=== PATIENT | male | born 1980 | race Caucasian/White ===

== ENCOUNTER 2017-10-05 07:57 | Observation (INO) | payer BC ==
--- NOTE | 2017-10-05 08:18 | DR.N/VMALE ---
HPI - Time Seen Time seen: 08:15 - Primary Care Physician Primary Care Physician: MENDEZ - Complaints Chief Complaint Doctors Comments: Patient presented to the ED with complaint of vomiting blood this AM, small amount. Admits to epigastric pain for two to three months treatment of OTC medication. He denies cigarettes, dips, very little alcohol. Negative getting flu shots. Chief Complaint:: PT. STATES HE HAD BEEN HAVING HEARTBURN X 1 MONTH AND BEEN TAKING OTC MEDICATIONS WITH NO RELIEF. PT. SAYS HE VOMITED BLOOD X 3 THIS MORNING AND IS HAVING EPIGASTRIC PAIN (BURNING SENSATION) WELL AT FATIGUE. - Source History Provided: Patient - Mode of Arrival Mode of Arrival: Ambulatory - Timing Onset of Chief Complaint: 10/05/17 PMH - PMH Past Medical History: Yes Past Medical History: Hypertension Past Surgical History: Yes Surgical History: Appendectomy - Family History History of Family Medical Conditions: No - Social History Does patient currently use any type of tobacco product: No Have you used tobacco products in the last 12 months: No Type of Tobacco Use: DIPS Does any household member use tobacco: No Alcohol Use: None Do you use any recreational Drugs:: No Lives With: Spouse Lives Where: Home - infectious screening In the last 2 months have you had wt loss of >10#?: NO Have you had fever, night sweats or hemotysis?: No Have you traveled outside the country in the last 6 months?: No Isolation: Standard ROS - Review of Systems Eyes: No Symptoms Reported ENTM: No Symptoms Reported Respiratoy: No Symptoms Reported Cardiovascular: No Symptoms Reported Gastrointestinal/Abdominal: No Symptoms Reported Genitourinary: No Symptoms Reported Neurological: No Symptoms Reported Musculoskeletal: No Symptoms Reported Integumentary: No Symptoms Reported Hematologic/Lymphatic: No Symptoms Reported Endocrine: No Symptoms Reported Psychiatric: No Symptoms Reported All Other Systems: Reviewed and Negative PE - Vital Signs Vitals: Temperature 99.1 F Pulse Rate 111 Respiratory Rate 20 Blood Pressure 145/105 O2 Sat by Pulse Oximetry 98 - General General Appearance: Alert, In No Apparent Distress - Head Head Exam: Normal Inspection, Atraumatic - Eyes Eye exam: Normal Appearance, PERRL, EOMI - ENT ENT Exam: Normal Exam - Neck Neck Exam: Normal Inspection, Full ROM - Chest Chest Inspection: Normal Inspection, Tenderness (xiphoid ) - Respiratory Respiratory Exam: Normal Lung Sounds Bilat Respiratory Exam: Bilateral Clear to Auscultation - Cardiovascular Cardiovascular Exam: Regular Rate, Normal Rhythm - Abdominal Exam Abdominal Exam: Normal Inspection, Normal Bowel Sounds Abdominal Tenderness: Epigastrium - Rectal Rectal Exam: Deferred (patient refused) - Exam: Male: Deferred - Extremities Extremities Exam: Normal Inspection, Full ROM - Back Back Exam: Normal Inspection - Neurologic Neurological Exam: Alert, Oriented X3, CN II-XII Intact - Psychiatric Psychiatric Exam: Normal Affect - Skin Skin Exam: Warm, Dry Course - Reevaluation 1st: Unchanged ROR - Labs Reviewed Result Diagrams: 10/05/17 08:40 10/05/17 08:40 Laboratory: WBC 13.2 X10^3/uL (3.6-10.0) H 10/05/17 08:40 RBC 6.11 X10^6/uL (4.7-6.0) H 10/05/17 08:40 Hgb 18.6 g/dL (13.5-18.0) H 10/05/17 08:40 Hct 53.6 % (42.0-54.0) 10/05/17 08:40 MCV 87.6 fL (80.0-100.0) 10/05/17 08:40 MCH 30.5 pg (27.0-34.0) 10/05/17 08:40 MCHC 34.8 g/dL (33.0-35.0) 10/05/17 08:40 RDW 13.2 % (11.6-16.5) 10/05/17 08:40 Plt Count 219 X10^3/uL (150.0-450.0) 10/05/17 08:40 MPV 9.0 fL (7.4-11.0) 10/05/17 08:40 Neut % 87.9 % (42.0-75.0) H 10/05/17 08:40 Lymph % 5.5 % (21.0-51.0) L 10/05/17 08:40 [place] % 5.3 % (0.0-13.0) 10/05/17 08:40 Eos % 1.1 % (0.9-2.9) 10/05/17 08:40 Baso % 0.2 % (0.2-1.0) 10/05/17 08:40 Neut # 11.6 x10^3/uL (2.2-4.8) H 10/05/17 08:40 Lymph # 0.7 X10^3/uL (1.3-2.9) L 10/05/17 08:40 [place] # 0.7 x10^3/uL (0.3-0.8) 10/05/17 08:40 Eos # 0.1 x10^3/uL (0.0-0.2) 10/05/17 08:40 Baso # 0.0 X10^3/uL (0.0-0.1) 10/05/17 08:40 Absolute Nucleated RBC 0.1 /100WBC 10/05/17 08:40 Sodium 140 mmol/L (136-145) 10/05/17 08:40 Corrected Sodium 140 mmol/L (136-145) 10/05/17 08:40 Potassium 5.1 mmol/L (3.5-5.1) 10/05/17 08:40 Chloride 104 mmol/L (98-107) 10/05/17 08:40 Carbon Dioxide 30.2 mmol/L (21-32) 10/05/17 08:40 BUN 13 mg/dL (7-18) 10/05/17 08:40 Creatinine 1.11 mg/dL (0.70-1.30) 10/05/17 08:40 Est GFR (MDRD) Af Amer > 60 (>60) 10/05/17 08:40 Est GFR (MDRD) Non-Af > 60 (>60) 10/05/17 08:40 Glucose 111 mg/dL (65-99) H 10/05/17 08:40 Calcium 8.7 mg/dL (8.5-10.1) 10/05/17 08:40 Corrected Calcium TNP 10/05/17 08:40 Total Bilirubin 1.10 mg/dL (0.2-1.0) H 10/05/17 08:40 AST 22 Units/L (15-37) 10/05/17 08:40 ALT 39 Units/L (12-78) 10/05/17 08:40 Alkaline Phosphatase 60 Units/L (46-116) 10/05/17 08:40 C-Reactive Protein 5.10 mg/L (0-3.0) H 10/05/17 08:40 Total Protein 7.6 g/dL (6.4-8.2) 10/05/17 08:40 Albumin 3.9 g/dL (3.4-5.0) 10/05/17 08:40 Globulin 3.7 g/dL (2.5-4.5) 10/05/17 08:40 Albumin/Globulin Ratio 1.1 Ratio (1.1-2.1) 10/05/17 08:40 H. pylori IgG Antibody Negative (NEGATIVE) 10/05/17 08:40 - XRAY XRAY Interpreted by: Radiologist (CT Abd/Pel: negative) - Diagnosis Discharge Problem: Epigastric pain - Discharge Plan Condition: Stable - Follow ups/Referrals Follow ups/Referrals: Salomon Crockett [Primary Care Provider] - 3 days - Instructions
[2017-10-05] MEDS ORDERED: NS 1000 ML 1,000 ML IV ONE ×2 (08:25→12:24)
[2017-10-05] MEDS ORDERED: NS 1000 ML 1,000 ML ONE ×2 (08:31→12:22)
[2017-10-05 08:51] LABS: BASOPHILS % (AUTO) 0.2 % (0.2-1.0); EOSINOPHILS # (AUTO) 0.1 x10^3/uL (0.0-0.2); EOSINOPHILS % (AUTO) 1.1 % (0.9-2.9); HEMATOCRIT 53.6 % (42.0-54.0); HEMOGLOBIN 18.6 g/dL (13.5-18.0); LYMPHOCYTES # (AUTO) 0.7 X10^3/uL (1.3-2.9); LYMPHOCYTES % (AUTO) 5.5 % (21.0-51.0); MEAN CORPUSCULAR HEMOGLOBIN 30.5 pg (27.0-34.0); MEAN CORPUSCULAR HGB CONC 34.8 g/dL (33.0-35.0); MEAN CORPUSCULAR VOLUME 87.6 fL (80.0-100.0); MONOCYTES # (AUTO) 0.7 x10^3/uL (0.3-0.8); MONOCYTES % (AUTO) 5.3 % (0.0-13.0); NEUTROPHILS # (AUTO) 11.6 x10^3/uL (2.2-4.8); NEUTROPHILS % (AUTO) 87.9 % (42.0-75.0); PLATELET COUNT 219 X10^3/uL (150.0-450.0); RED BLOOD COUNT 6.11 X10^6/uL (4.7-6.0); RED CELL DISTRIBUTION WIDTH 13.2 % (11.6-16.5); WHITE BLOOD COUNT 13.2 X10^3/uL (3.6-10.0)
[2017-10-05 08:59] LABS: ALANINE AMINOTRANSFERASE 39 Units/L (12-78); ALBUMIN 3.9 g/dL (3.4-5.0); ALKALINE PHOSPHATASE 60 Units/L (46-116); ASPARTATE AMINO TRANSFERASE 22 Units/L (15-37); BLOOD UREA NITROGEN 13 mg/dL (7-18); CALCIUM 8.7 mg/dL (8.5-10.1); CARBON DIOXIDE 30.2 mmol/L (21-32); CHLORIDE 104 mmol/L (98-107); COR NA(FOR HYPERGLY) 140 mmol/L (136-145); CREATININE 1.11 mg/dL (0.70-1.30); SODIUM 140 mmol/L (136-145); TOTAL PROTEIN 7.6 g/dL (6.4-8.2); eGFR BLACK RACES > 60 (>60); eGFR NON BLACK RACES > 60 (>60)
[2017-10-05] MEDS ORDERED: ZOFRAN INJ 4 MG VIAL ONE (10:04)
[2017-10-05] MEDS ORDERED: ZOFRAN INJ 4 MG VIAL IVP ONE ×2 (10:04→11:57)
[2017-10-05] MEDS ORDERED: NS 100 ML IV 100 ML IV ONE (10:11)
--- NOTE | 2017-10-05 10:43 | CT ---
HISTORY: Epigastric pain, abdominal pain Study: CT abdomen and pelvis with contrast Comparison: None Technique: Multiple axial images of the abdomen and pelvis were obtained with IV contrast. Oral contrast was no t remote administered. Dose reduction techniques including Automated Exposure Control (AEC) and adjus tment of mA and kV were utilized. Findings: The visualized portions of the lung bases are clear. The liver, spleen, pancreas, kidneys, and adren al glands are unremarkable. The gallbladder is normal. No renal calculi or obstructive uropathy. No free intraperitoneal air. No evidence of intestinal obstruction or inflammation. The appendix is n ot visualized. No free fluid. There is a small fat containing umbilical hernia. Osseous structures are unremarkable. The vascular s tructures are within normal limits for age. No pathologically enlarged lymph nodes are identified. No rmal urinary bladder. IMPRESSION: 1.Negative CT of the abdomen and pelvis. Reported By:
[2017-10-05] MEDS ORDERED: PHENERGAN INJ 25 MG IV ONE (11:18)
[2017-10-05] MEDS ORDERED: PHENERGAN INJ 25 MG ONE (11:30)
[2017-10-05 11:55] LABS: BILIRUBIN,URINE NEGATIVE (NEGATIVE); BLOOD/HEMOGLOBIN,URINE NEGATIVE (NEGATIVE); GLUCOSE, URINE NEGATIVE (NEGATIVE); KETONES,URINE NEGATIVE (NEGATIVE); LEUKOCYTE ESTERASE ,URINE NEGATIVE (NEGATIVE); NITRITES,URINE NEGATIVE (NEGATIVE); PROTEIN,URINE NEGATIVE (NEGATIVE); UROBILINOGEN,URINE NORMAL (NORMAL)
[2017-10-05 11:59] LABS: APPEARANCE,URINE CLEAR (CLEAR); COLOR,URINE YELLOW (YELLOW)
[2017-10-05] MEDS ORDERED: NS 1000 ML 1,000 ML with POTASSIUM CHLORIDE INJ 20 MEQ VIAL 20 MEQ IV SCH ×2 (12:00)
[2017-10-05] MEDS ORDERED: MORPHINE SULFATE INJ 4 MG IVP PRN (12:01)
[2017-10-05 12:03] LABS: RBC,URINE 0-1 /HPF (NEGATIVE)
[2017-10-05 12:04] LABS: BACTERIA,URINE NEGATIVE /HPF (NEGATIVE); SQUAMOUS EPITHELIAL CELL,UR NEGATIVE /HPF (NEGATIVE)
[2017-10-05] MEDS ORDERED: PHENERGAN INJ 25 MG IV PRN (12:24)
[2017-10-05 15:59] VITALS: BMI 41.9
[2017-10-05 17:00] LABS: BILIRUBIN,DIRECT 0.25 mg/dL (0-0.2)
[2017-10-05] MEDS ORDERED: TYLENOL 500 MG TAB EXTRA STRENGTH PO ONE ×2 (18:20→18:41)
[2017-10-05] MEDS: NS + KCL 20 MEQ/L 1,000 ML IV SCH ×2 (18:47→22:54)
[2017-10-05] MEDS: PROTONIX INJ 40 MG VIAL IVP SCH (21:14)
[2017-10-06] MEDS: NS + KCL 20 MEQ/L 1,000 ML IV SCH ×4 (04:00→17:34)
[2017-10-06 05:52] LABS: ALANINE AMINOTRANSFERASE 26 Units/L (12-78); ALBUMIN 3.1 g/dL (3.4-5.0); ALKALINE PHOSPHATASE 31 Units/L (46-116); ASPARTATE AMINO TRANSFERASE 17 Units/L (15-37); BLOOD UREA NITROGEN 12 mg/dL (7-18); CALCIUM 7.8 mg/dL (8.5-10.1); CARBON DIOXIDE 25.8 mmol/L (21-32); CHLORIDE 103 mmol/L (98-107); COR CA(FOR HYPOALB) 8.5 mg/dL (8.5-10.1); CREATININE 1.07 mg/dL (0.70-1.30); SODIUM 137 mmol/L (136-145); TOTAL PROTEIN 6.5 g/dL (6.4-8.2); eGFR BLACK RACES > 60 (>60); eGFR NON BLACK RACES > 60 (>60)
[2017-10-06 06:12] LABS: BASOPHILS % (AUTO) 0.3 % (0.2-1.0); HEMATOCRIT 46.7 % (42.0-54.0); HEMOGLOBIN 16.3 g/dL (13.5-18.0); LYMPHOCYTES # (AUTO) 0.6 X10^3/uL (1.3-2.9); LYMPHOCYTES % (AUTO) 9.3 % (21.0-51.0); MEAN CORPUSCULAR HEMOGLOBIN 30.4 pg (27.0-34.0); MEAN PLATELET VOLUME 9.2 fL (7.4-11.0); MONOCYTES # (AUTO) 0.4 x10^3/uL (0.3-0.8); MONOCYTES % (AUTO) 6.4 % (0.0-13.0); NEUTROPHILS # (AUTO) 5.7 x10^3/uL (2.2-4.8); PLATELET COUNT 173 X10^3/uL (150.0-450.0); RED BLOOD COUNT 5.36 X10^6/uL (4.7-6.0); WHITE BLOOD COUNT 6.8 X10^3/uL (3.6-10.0)
[2017-10-06] MEDS ORDERED: NORVASC TAB 5 MG PO SCH (09:00)
[2017-10-06] MEDS: PROTONIX INJ 40 MG VIAL IVP SCH ×2 (09:10→21:17)
--- NOTE | 2017-10-06 11:09 | DR.CONSULT ---
Consult - Consultation for Day of: Date: 10/05/16 - Chief Complaint Chief Complaint: Patient referred for epigastric pain and intractable nausea and vomiting. Patient with complaints of Epigastric pain, nausea and vomiting. - Allergies Allergies/Adverse Reactions: Allergies Allergy/AdvReac Type Severity Reaction Status Date / Time No Known Drug Allergies Allergy Verified 10/05/17 08:01 - History of Present Illness History of Present Illness: Patient is a 37yo male who was referred for epigastric pain and intractable nausea and vomiting. Patient with complaints of Epigastric pain that has been going on for 1 month, nausea and vomiting which started today and has vomting around a dozen times today with blood noted. He denies dysphagia, dyspepsia, constipation, diarrhea, melena and hematochezia. Patient noted to have elevated bilirubin and abdomen pelvis CT performed was negative. Patinet noted to have LUQ and epigastric tenderness. - Past Medical History Past Medical History: Hypertension - Past Surgical History Surgical History: Appendectomy - Social History Does patient currently use any type of tobacco product: Yes Have you used tobacco products in the last 12 months: Yes Type of Tobacco Use: Smokeless How many years tobacco product used: 10 Does any household member use tobacco: No Alcohol Use: Rarely Drug Use: None - Medications Home Medications: Amlodipine Besylate [NORVASC 5 MG *] 1 tab PO DAILY 10/05/17 [History Confirmed 10/05/17] - Review of Systems Constitutional: No Symptoms Reported Eyes: No Symptoms Reported ENT: No Symptoms Reported Respiratory: No Symptoms Reported Cardiovascular: No Symptoms Reported Gastrointestinal: See HPI, Nausea, Vomiting, Abdominal Pain (epigastric). denies: Diarrhea, Constipation, Melena, Hematochezia Genitourinary: No Symptoms Reported Musculoskeletal: No Symptoms Reported Skin: No Symptoms Reported Neurological: No Symptoms Reported - Physical Exam Vital Signs: Temperature 98.8 F Pulse Rate [Left Radial] 105 Pulse Rate 111 Respiratory Rate 18 Blood Pressure [Left Arm] 142/88 Blood Pressure 145/105 O2 Sat by Pulse Oximetry 91 Oriented: Normal Eyes: Normal Ear: Normal Nose: Normal Throat: Normal Respiratory: Clear Throughout Cardiovascular: Normal Auscultation: Bowel Sounds: Normal Palpation: Normal, Other (no distention). negative: Spleen Enlarged, Liver Enlarged, Mass Pulsatile Tenderness: LUQ, Epigastric Skin: Normal Musculoskeletal: Normal Psychiatric: Normal Mood Description: Calm Affect: Normal Speech Pattern: Clear - Plan Plan: Assessment. 1. Epigastric pain, nausea, vomiting, hematemesis r/o gastric ulcer, gastric adenocarcinoma. 2. Elevated LFTS. Plan. 1. Monitor Hgb , start protonix IV, EGD on . 2. Abdnormal LFT panel, Hepatitis profile
[2017-10-06] MEDS: TORADOL 15 MG VIAL IVP PRN ×2 (14:55→21:15)
[2017-10-06] MEDS ORDERED: LASIX IVP ONE (16:08)
--- NOTE | 2017-10-06 16:57 | RAD ---
HISTORY: Shortness of breath Study: Single view chest Comparison: None Findings: No infiltrate, effusion or pneumothorax identified. The cardiac and mediastinal contours are within normal limits. The soft tissues are unremarkable. IMPRESSION: 1. No acute cardiopulmonary abnormality. Reported By:
[2017-10-06] MEDS: NORVASC TAB 10 MG PO SCH (17:33)
[2017-10-07] MEDS: NS + KCL 20 MEQ/L 1,000 ML IV SCH ×5 (02:48→23:00)
[2017-10-07 05:43] LABS: BASOPHILS % (AUTO) 0.2 % (0.2-1.0); EOSINOPHILS % (AUTO) 0.4 % (0.9-2.9); HEMATOCRIT 46.5 % (42.0-54.0); HEMOGLOBIN 16.2 g/dL (13.5-18.0); LYMPHOCYTES # (AUTO) 1.3 X10^3/uL (1.3-2.9); LYMPHOCYTES % (AUTO) 13.5 % (21.0-51.0); MEAN CORPUSCULAR HEMOGLOBIN 30.3 pg (27.0-34.0); MEAN CORPUSCULAR HGB CONC 34.9 g/dL (33.0-35.0); MEAN CORPUSCULAR VOLUME 86.9 fL (80.0-100.0); MEAN PLATELET VOLUME 9.2 fL (7.4-11.0); MONOCYTES # (AUTO) 0.9 x10^3/uL (0.3-0.8); MONOCYTES % (AUTO) 9.3 % (0.0-13.0); NEUTROPHILS # (AUTO) 7.4 x10^3/uL (2.2-4.8); NEUTROPHILS % (AUTO) 76.6 % (42.0-75.0); PLATELET COUNT 173 X10^3/uL (150.0-450.0); RED BLOOD COUNT 5.35 X10^6/uL (4.7-6.0); RED CELL DISTRIBUTION WIDTH 12.6 % (11.6-16.5); WHITE BLOOD COUNT 9.7 X10^3/uL (3.6-10.0)
[2017-10-07 05:56] LABS: ALANINE AMINOTRANSFERASE 26 Units/L (12-78); ALKALINE PHOSPHATASE 36 Units/L (46-116); ASPARTATE AMINO TRANSFERASE 18 Units/L (15-37); BLOOD UREA NITROGEN 10 mg/dL (7-18); CARBON DIOXIDE 24.8 mmol/L (21-32); CHLORIDE 104 mmol/L (98-107); COR CA(FOR HYPOALB) 8.8 mg/dL (8.5-10.1); CREATININE 1.21 mg/dL (0.70-1.30); SODIUM 138 mmol/L (136-145); TOTAL PROTEIN 6.6 g/dL (6.4-8.2); eGFR BLACK RACES > 60 (>60); eGFR NON BLACK RACES > 60 (>60)
[2017-10-07] MEDS: NORVASC TAB 10 MG PO SCH (08:40)
[2017-10-07] MEDS: PROTONIX INJ 40 MG VIAL IVP SCH ×2 (08:40→21:47)
--- NOTE | 2017-10-07 12:13 | DR.H&P ---
H&P - History & Physical for Day of: H&P Date: 10/05/17 - Chief Complaint Chief Complaint: abdominal pain - Allergies Allergies/Adverse Reactions: Allergies Allergy/AdvReac Type Severity Reaction Status Date / Time No Known Drug Allergies Allergy Verified 10/05/17 08:01 - History of Present Illness History of Present Illness: IS A 37 YEAR OLD PATIENT OF OURS WHO PRESENTED TO THE EMERGENCY ROOM WITH COMPLAINTS OF EPIGASTRIC PAIN, HEARTBURN , AND VOMITING BLOOD. PATIENT REPORTS VOMITING BLOOD THREE TIMES THIS MORNING PRIOR TO ARRIVAL TO THE EMERGENCY ROOM. HE REPORTS EPIGASTRIC PAIN FOR TWO MONTHS THAT HAS PROGRESSIVLY GOTTEN WORSE DESPITE TAKING OVER THE COUNTER ANTACIDS. PATIENT REPORTS THAT HE IS UNABLE TO TOLERATE TAKING ANYTHING BY MOUTH WITHOUT VOMITING. ON EXAMINATION, HEART RATE IS RAPID. BILATERAL LUNGS ARE NOTED WITH SCATTERED WHEEZING. HE DENIES COUGH. ABDOMEN IS ROUND, SOFT, AND NOTED WITH MODERATE EPIGASTRIC PAIN. BOWEL SOUNDS ARE HYPERACTIVE. THERE IS NORMAL RANGE OF MOTION TO ALL EXTREMITIES. ON ARRIVAL TO THE EMERGENCY ROOM, VITALS WERE 99.1-111-20-98%-145/97. LABS AND CT WERE OBTAINED. ABNORMAL LAB VALUES INCLUDE THE FOLLOWING: WBC 13.2, RBC 6.11, HGB 18.6, GLUCOSE 111, TOTAL BILI 1.10, CRP 5.10. URINALYSIS UNREMARKABLE. BLOOD CLTURES ARE PENDING. AN ABD/ PELVIS CT WITH CONTRAST WAS OBTAINED AND REPORTED NEGATIVE FOR ACUTE ABNORMALITY. PATIENT WAS ADMITTED FOR FURTHER TREATMENT AND EVALUATION. HE WAS STARTED ON NORMAL SALINE WITH 20MEQ KCL AT 125, PROTONIX 40MG IV BID, PHENERGAN 25MG IV Q4H PRN, AND MORPHINE 4MG IV Q6H PRN. WE PLAN TO CONSULT GASTROENTEROLOGY, FOLLOW UP WITH AM LABS, AND CONTINUE TO MONITOR PATIENT. - Past Medical History Past Medical History: Hypertension - Past Surgical History Surgical History: Appendectomy - Social History Does patient currently use any type of tobacco product: Yes Have you used tobacco products in the last 12 months: Yes Type of Tobacco Use: Smokeless How many years tobacco product used: 10 Does any household member use tobacco: No Alcohol Use: Rarely Drug Use: None - Medications Home Medications: Amlodipine Besylate [NORVASC 5 MG *] 1 tab PO DAILY 10/05/17 [History Confirmed 10/05/17] - Review of Systems Constitutional: See HPI, Other (fatigue) Eyes: No Symptoms Reported ENT: No Symptoms Reported Respiratory: No Symptoms Reported Cardiovascular: No Symptoms Reported Gastrointestinal: Nausea, Vomiting, Abdominal Pain, Hematochezia Genitourinary: No Symptoms Reported Musculoskeletal: No Symptoms Reported Skin: No Symptoms Reported Neurological: No Symptoms Reported - Physical Exam Vital Signs: Temperature 98.9 F Pulse Rate [Left Radial] 98 Pulse Rate 111 Respiratory Rate 20 Blood Pressure [Left Arm] 152/96 Blood Pressure 145/105 O2 Sat by Pulse Oximetry 95 Oriented: Normal Eyes: Normal Ear: Normal Nose: Normal Throat: Normal Respiratory: Wheezes Throughout Cardiovascular: Normal : Normal Auscultation: Bowel Sounds: Increased Palpation: Normal Tenderness: Epigastric, Moderate Skin: Normal Musculoskeletal: Normal Psychiatric: Normal Mood Description: Calm Affect: Normal Speech Pattern: Clear - Assessment/Plan (1) Intractable nausea and vomiting Qualifiers: Vomiting type: unspecified Qualified Code(s): R11.2 - Nausea with vomiting , unspecified Status: Acute Plan: phenergan 25mn iv q4h prn, continue to monitor (2) Epigastric pain Status: Acute Plan: morphine 4mg iv q6h prn, protonix 40mg iv bid, gi consult, continue to monitor
--- NOTE | 2017-10-07 12:21 | US ---
History: Epigastric abdominal pain Study: Ultrasound of the right upper quadrant of the abdomen Findings: The liver is normal in size without demonstration of a mass. The right kidney measures 12.06 x 7.76 x 5.56 cm without mass or hydronephrosis. The pancreas is obscured. The common hepatic duct measures 5.1 mm diameter. The gallbladder is of normal size. The wall is thic kened up to 4 mm. There are small echogenic foci within the gallbladder. Impression: Cholelithiasis and questionable cholecystitis Reported By:
[2017-10-07] MEDS ORDERED: DIPRIVAN VIAL 20 ML ONE ×2 (12:33→12:56)
[2017-10-07] MEDS ORDERED: NS 500 ML IV 500 ML IV ONE (12:34)
[2017-10-07] MEDS ORDERED: DIPRIVAN VIAL 10 ML ONE (12:45)
[2017-10-07] MEDS: TORADOL 15 MG VIAL IVP PRN (15:33)
[2017-10-07] MEDS ORDERED: CATAPRES TAB 0.1 MG PO ONE (22:02)
--- NOTE | 2017-10-07 22:19 | PCM.PROG ---
Progress Note - Progress Note for Day of Date: 10/06/17 - Subjective Subjective: WAS ADMITTED ON 10/05/2017 FOR EPIGASTRIC PAIN AND INTRACTABLE NAUSEA AND VOMITING. TODAY, HE IS ALERT AND ORIENTED, SITTING UP IN CHAIR ON MORNING ROUNDS. PATIENTS SPOUSE IS AT BEDSIDE. TODAY, HE CONTINUES WITH COMPLAINTS OF EPIGASTRIC PAIN AND NAUSEA. HE IS ALSO NOTED WITH COMPLAINTS OF WHEEZING, AND HEADACHE. PATIENT REPORTS THAT PAIN AND INDIGESTION IS WORSE AFTER EATING. HE DENIES VOMITING SINCE ADMISSION. ON EXAMINATION, HE IS SLIGHTLY TACHYCARDIC WITH HR NOTED TO BE 105. BILATERAL LUNGS ARE NOTED WITH SCATTERED WHEEZING. ABDOMEN IS ROUND, SOFT, AND NOTED WITH MILD EPIGASTRIC TENDERNESS. THERE IS GOOD RANGE OF MOTION NOTED TO ALL EXTREMITIES. HIS VITAL SIGNS THIS MORNING ARE 98.8-105-18-96%-142/88. LABS WERE OBTAINED. ABNORMAL LAB VALUES INCLUDE THE FOLLOWING: CALCIUM 7.8, TOTAL BILIRUBIN 1.70, ALK PHOS 31, ALBUMIN 3.1. CONSULTED WITH PATIENT YESTERDAY. HE PLANS FOR EGD TOMORROW TO RULE OUT GASTRIC ULCER AND ADENOCARCINOMA. ADDITIONAL LABS WERE ALSO ORDERED. WE WILL ORDER A CHEST XRAY TODAY AND A GALLBLADDER ULTRASOUND TO BE OBTAINED IN THE MORNING. WE WILL START TORADOL 15MG IV Q6H PRN FOR COMPLAINTS OF HEADACHE. OTHERWISE, WE WILL FOLLOW UP WITH AM LABS AND CONTINUE TO MONITOR PATIENT. - Past Medical Family Social History Past Med/Fam/Surg Hx: No changes since H&P Allergies: Allergies No Known Drug Allergies Allergy (Verified 10/05/17 08:01) - Review of Systems ROS: No change since H&P - Vital Signs and I&O's Vital Signs: Temperature 98.3 F Pulse Rate [Left Radial] 93 Pulse Rate 111 Respiratory Rate 20 Blood Pressure [Left Arm] 147/88 Blood Pressure 145/105 O2 Sat by Pulse Oximetry 97 Intake and Output: Intake & Output 10/05/17 10/06/17 10/07/17 10/08/17 11:59 11:59 11:59 11:59 Intake Total 1854 2059 147 Output Total 0 Balance 1854 2059 1474 - Physical Exam Oriented: Normal Eyes: Normal Ear: Normal Nose: Normal Throat: Normal Respiratory: Right, Left, Generalized, Wheezes Cardiovascular: Normal : Normal Auscultation: Bowel Sounds: Increased Palpation: Normal Tenderness: Epigastric, Mild Skin: Normal Musculoskeletal: Normal Psychiatric: Normal Mood Description: Calm Affect: Normal Speech Pattern: Clear - Laboratory and Diagnostics Result Diagrams: 10/07/17 04:50 10/07/17 04:50 Labs: 10/05/17 19:20 Blood Blood Culture - Preliminary 10/05/17 19:15 Blood Blood Culture - Preliminary Laboratory WBC 9.7 X10^3/uL (3.6-10.0) 10/07/17 04:50 RBC 5.35 X10^6/uL (4.7-6.0) 10/07/17 04:50 Hgb 16.2 g/dL (13.5-18.0) 10/07/17 04:50 Hct 46.5 % (42.0-54.0) 10/07/17 04:50 MCV 86.9 fL (80.0-100.0) 10/07/17 04:50 MCH 30.3 pg (27.0-34.0) 10/07/17 04:50 MCHC 34.9 g/dL (33.0-35.0) 10/07/17 04:50 RDW 12.6 % (11.6-16.5) 10/07/17 04:50 Plt Count 173 X10^3/uL (150.0-450.0) 10/07/17 04:50 MPV 9.2 fL (7.4-11.0) 10/07/17 04:50 Neut % 76.6 % (42.0-75.0) H 10/07/17 04:50 Lymph % 13.5 % (21.0-51.0) L 10/07/17 04:50 [place] % 9.3 % (0.0-13.0) 10/07/17 04:50 Eos % 0.4 % (0.9-2.9) L 10/07/17 04:50 Baso % 0.2 % (0.2-1.0) 10/07/17 04:50 Neut # 7.4 x10^3/uL (2.2-4.8) H 10/07/17 04:50 Lymph # 1.3 X10^3/uL (1.3-2.9) 10/07/17 04:50 [place] # 0.9 x10^3/uL (0.3-0.8) H 10/07/17 04:50 Eos # 0.0 x10^3/uL (0.0-0.2) 10/07/17 04:50 Baso # 0.0 X10^3/uL (0.0-0.1) 10/07/17 04:50 Absolute Nucleated RBC 0.1 /100WBC 10/07/17 04:50 Sodium 138 mmol/L (136-145) 10/07/17 04:50 Corrected Sodium TNP 10/07/17 04:50 Potassium 3.7 mmol/L (3.5-5.1) 10/07/17 04:50 Chloride 104 mmol/L (98-107) 10/07/17 04:50 Carbon Dioxide 24.8 mmol/L (21-32) 10/07/17 04:50 BUN 10 mg/dL (7-18) 10/07/17 04:50 Creatinine 1.21 mg/dL (0.70-1.30) 10/07/17 04:50 Est GFR (MDRD) Af Amer > 60 (>60) 10/07/17 04:50 Est GFR (MDRD) Non-Af > 60 (>60) 10/07/17 04:50 Glucose 99 mg/dL (65-99) 10/07/17 04:50 Calcium 8.0 mg/dL (8.5-10.1) L 10/07/17 04:50 Corrected Calcium 8.8 mg/dL (8.5-10.1) 10/07/17 04:50 Iron 26 ug/dL (50-175) L 10/05/17 16:12 TIBC 225 ug/dL (250-450) L 10/05/17 16:12 Transferrin 182 mg/dL (202-364) L 10/05/17 16:12 Ferritin 182 ng/mL (26-388) 10/05/17 16:12 Total Bilirubin 1.00 mg/dL (0.2-1.0) 10/07/17 04:50 Direct Bilirubin 0.25 mg/dL (0-0.2) H 10/05/17 16:12 Indirect Bilirubin 1.25 mg/dL (0.2-0.8) H 10/05/17 16:12 AST 18 Units/L (15-37) 10/07/17 04:50 ALT 26 Units/L (12-78) 10/07/17 04:50 Alkaline Phosphatase 36 Units/L (46-116) L 10/07/17 04:50 C-Reactive Protein 5.10 mg/L (0-3.0) H 10/05/17 08:40 Total Protein 6.6 g/dL (6.4-8.2) 10/07/17 04:50 Albumin 3.0 g/dL (3.4-5.0) L 10/07/17 04:50 Globulin 3.6 g/dL (2.5-4.5) 10/07/17 04:50 Albumin/Globulin Ratio 0.8 Ratio (1.1-2.1) L 10/07/17 04:50 Specimen Type Clean catch urine 10/05/17 11:36 Urine Color Yellow (YELLOW) 10/05/17 11:36 Urine Appearance Clear (CLEAR) 10/05/17 11:36 Urine pH 7.0 (5.0 - 8.0) 10/05/17 11:36 Ur Specific [place] 1.010 (1.000-1.030) 10/05/17 11:36 Urine Protein Negative (NEGATIVE) 10/05/17 11:36 Urine Glucose (UA) Negative (NEGATIVE) 10/05/17 11:36 Urine Ketones Negative (NEGATIVE) 10/05/17 11:36 Urine Occult Blood Negative (NEGATIVE) 10/05/17 11:36 Urine Nitrite Negative (NEGATIVE) 10/05/17 11:36 Urine Bilirubin Negative (NEGATIVE) 10/05/17 11:36 Urine Urobilinogen Normal (NORMAL) 10/05/17 11:36 Ur Leukocyte Esterase Negative (NEGATIVE) 10/05/17 11:36 Urine RBC 0-1 /HPF (NEGATIVE) 10/05/17 11:36 Urine WBC Neg /HPF (NEGATIVE) 10/05/17 11:36 Ur Squamous Epith Cells Negative /HPF (NEGATIVE) 10/05/17 11:36 Urine Bacteria Negative /HPF (NEGATIVE) 10/05/17 11:36 Ur Culture Indicated? No/not indicated 10/05/17 11:36 H. pylori IgG Antibody Negative (NEGATIVE) 10/05/17 08:40 Tissue Pathology To follow 10/07/17 12:44 - Plan (1) Intractable nausea and vomiting Status: Acute Qualifiers: Vomiting type: unspecified Qualified Code(s): R11.2 - Nausea with vomiting , unspecified Plan: phenergan 25mn iv q4h prn, continue to monitor (2) Epigastric pain Status: Acute Plan: morphine 4mg iv q6h prn, protonix 40mg iv bid, EGD on , gallbladder US on , continue to monitor (3) GERD (gastroesophageal reflux disease) Status: Acute Qualifiers: Esophagitis presence: with esophagitis Qualified Code(s): K21.0 - Gastro- esophageal reflux disease with esophagitis Plan: protonix 40mg iv bid, continue to monitor (4) Hypertension Status: Acute Qualifiers: Hypertension type: essential hypertension Qualified Code(s): I10 - Essential (primary) hypertension Plan: continue norvasc 10mg po daily, continue to monitor
[2017-10-07 23:26] LABS: HEPATITIS A ANTIBODY IGM Negative (Negative)
--- NOTE | 2017-10-08 01:01 | PCM.PROG ---
Progress Note - Progress Note for Day of Date: 10/07/17 - Subjective Subjective: WAS ADMITTED ON 10/05/2017 FOR EPIGASTRIC PAIN AND INTRACTABLE NAUSEA AND VOMITING. TODAY, HE IS ALERT AND ORIENTED, SITTING UP IN CHAIR ON MORNING ROUNDS. PATIENTS SPOUSE IS AT BEDSIDE. TODAY, HE CONTINUES WITH COMPLAINTS OF EPIGASTRIC PAIN AND NAUSEA. HE IS ALSO NOTED WITH COMPLAINTS OF WHEEZING, AND HEADACHE. PATIENT REPORTS THAT PAIN AND INDIGESTION IS WORSE AFTER EATING. HE DENIES VOMITING SINCE ADMISSION. ON EXAMINATION, HE IS SLIGHTLY TACHYCARDIC WITH HR NOTED TO BE 105. BILATERAL LUNGS ARE NOTED WITH SCATTERED WHEEZING. ABDOMEN IS ROUND, SOFT, AND NOTED WITH MILD EPIGASTRIC TENDERNESS. THERE IS GOOD RANGE OF MOTION NOTED TO ALL EXTREMITIES. HIS VITAL SIGNS THIS MORNING ARE 98.8-105-18-96%-142/88. LABS WERE OBTAINED. ABNORMAL LAB VALUES INCLUDE THE FOLLOWING: CALCIUM 7.8, TOTAL BILIRUBIN 1.70, ALK PHOS 31, ALBUMIN 3.1. CONSULTED WITH PATIENT YESTERDAY. HE PLANS FOR EGD TOMORROW TO RULE OUT GASTRIC ULCER AND ADENOCARCINOMA. ADDITIONAL LABS WERE ALSO ORDERED. WE WILL ORDER A CHEST XRAY TODAY AND A GALLBLADDER ULTRASOUND TO BE OBTAINED IN THE MORNING. WE WILL START TORADOL 15MG IV Q6H PRN FOR COMPLAINTS OF HEADACHE. OTHERWISE, WE WILL FOLLOW UP WITH AM LABS AND CONTINUE TO MONITOR PATIENT. - Past Medical Family Social History Past Med/Fam/Surg Hx: No changes since H&P Allergies: Allergies No Known Drug Allergies Allergy (Verified 10/05/17 08:01) - Review of Systems ROS: No change since H&P - Vital Signs and I&O's Vital Signs: Temperature 98.3 F Pulse Rate [Left Radial] 96 Pulse Rate 111 Respiratory Rate 20 Blood Pressure [Left Arm] 138/92 Blood Pressure 145/105 O2 Sat by Pulse Oximetry 95 Intake and Output: Intake & Output 10/05/17 10/06/17 10/07/17 10/08/17 11:59 11:59 11:59 11:59 Intake Total 1854 2059 1974 Output Total 0 Balance 1854 2059 1974 - Physical Exam Oriented: Normal Eyes: Normal Ear: Normal Nose: Normal Throat: Normal Respiratory: Right, Left, Generalized, Wheezes Cardiovascular: Normal : Normal Auscultation: Bowel Sounds: Increased Palpation: Normal Tenderness: Epigastric, Mild Skin: Normal Musculoskeletal: Normal Psychiatric: Normal Mood Description: Calm Affect: Normal Speech Pattern: Clear - Laboratory and Diagnostics Result Diagrams: 10/07/17 04:50 10/07/17 04:50 Labs: 10/05/17 19:20 Blood Blood Culture - Preliminary 10/05/17 19:15 Blood Blood Culture - Preliminary Laboratory WBC 9.7 X10^3/uL (3.6-10.0) 10/07/17 04:50 RBC 5.35 X10^6/uL (4.7-6.0) 10/07/17 04:50 Hgb 16.2 g/dL (13.5-18.0) 10/07/17 04:50 Hct 46.5 % (42.0-54.0) 10/07/17 04:50 MCV 86.9 fL (80.0-100.0) 10/07/17 04:50 MCH 30.3 pg (27.0-34.0) 10/07/17 04:50 MCHC 34.9 g/dL (33.0-35.0) 10/07/17 04:50 RDW 12.6 % (11.6-16.5) 10/07/17 04:50 Plt Count 173 X10^3/uL (150.0-450.0) 10/07/17 04:50 MPV 9.2 fL (7.4-11.0) 10/07/17 04:50 Neut % 76.6 % (42.0-75.0) H 10/07/17 04:50 Lymph % 13.5 % (21.0-51.0) L 10/07/17 04:50 Gilchrist % 9.3 % (0.0-13.0) 10/07/17 04:50 Eos % 0.4 % (0.9-2.9) L 10/07/17 04:50 Baso % 0.2 % (0.2-1.0) 10/07/17 04:50 Neut # 7.4 x10^3/uL (2.2-4.8) H 10/07/17 04:50 Lymph # 1.3 X10^3/uL (1.3-2.9) 10/07/17 04:50 Gilchrist # 0.9 x10^3/uL (0.3-0.8) H 10/07/17 04:50 Eos # 0.0 x10^3/uL (0.0-0.2) 10/07/17 04:50 Baso # 0.0 X10^3/uL (0.0-0.1) 10/07/17 04:50 Absolute Nucleated RBC 0.1 /100WBC 10/07/17 04:50 Sodium 138 mmol/L (136-145) 10/07/17 04:50 Corrected Sodium TNP 10/07/17 04:50 Potassium 3.7 mmol/L (3.5-5.1) 10/07/17 04:50 Chloride 104 mmol/L (98-107) 10/07/17 04:50 Carbon Dioxide 24.8 mmol/L (21-32) 10/07/17 04:50 BUN 10 mg/dL (7-18) 10/07/17 04:50 Creatinine 1.21 mg/dL (0.70-1.30) 10/07/17 04:50 Est GFR (MDRD) Af Amer > 60 (>60) 10/07/17 04:50 Est GFR (MDRD) Non-Af > 60 (>60) 10/07/17 04:50 Glucose 99 mg/dL (65-99) 10/07/17 04:50 Calcium 8.0 mg/dL (8.5-10.1) L 10/07/17 04:50 Corrected Calcium 8.8 mg/dL (8.5-10.1) 10/07/17 04:50 Iron 26 ug/dL (50-175) L 10/05/17 16:12 TIBC 225 ug/dL (250-450) L 10/05/17 16:12 Transferrin 182 mg/dL (202-364) L 10/05/17 16:12 Ferritin 182 ng/mL (26-388) 10/05/17 16:12 Total Bilirubin 1.00 mg/dL (0.2-1.0) 10/07/17 04:50 Direct Bilirubin 0.25 mg/dL (0-0.2) H 10/05/17 16:12 Indirect Bilirubin 1.25 mg/dL (0.2-0.8) H 10/05/17 16:12 AST 18 Units/L (15-37) 10/07/17 04:50 ALT 26 Units/L (12-78) 10/07/17 04:50 Alkaline Phosphatase 36 Units/L (46-116) L 10/07/17 04:50 C-Reactive Protein 5.10 mg/L (0-3.0) H 10/05/17 08:40 Total Protein 6.6 g/dL (6.4-8.2) 10/07/17 04:50 Albumin 3.0 g/dL (3.4-5.0) L 10/07/17 04:50 Globulin 3.6 g/dL (2.5-4.5) 10/07/17 04:50 Albumin/Globulin Ratio 0.8 Ratio (1.1-2.1) L 10/07/17 04:50 Specimen Type Clean catch urine 10/05/17 11:36 Urine Color Yellow (YELLOW) 10/05/17 11:36 Urine Appearance Clear (CLEAR) 10/05/17 11:36 Urine pH 7.0 (5.0 - 8.0) 10/05/17 11:36 Ur Specific [place] 1.010 (1.000-1.030) 10/05/17 11:36 Urine Protein Negative (NEGATIVE) 10/05/17 11:36 Urine Glucose (UA) Negative (NEGATIVE) 10/05/17 11:36 Urine Ketones Negative (NEGATIVE) 10/05/17 11:36 Urine Occult Blood Negative (NEGATIVE) 10/05/17 11:36 Urine Nitrite Negative (NEGATIVE) 10/05/17 11:36 Urine Bilirubin Negative (NEGATIVE) 10/05/17 11:36 Urine Urobilinogen Normal (NORMAL) 10/05/17 11:36 Ur Leukocyte Esterase Negative (NEGATIVE) 10/05/17 11:36 Urine RBC 0-1 /HPF (NEGATIVE) 10/05/17 11:36 Urine WBC Neg /HPF (NEGATIVE) 10/05/17 11:36 Ur Squamous Epith Cells Negative /HPF (NEGATIVE) 10/05/17 11:36 Urine Bacteria Negative /HPF (NEGATIVE) 10/05/17 11:36 Ur Culture Indicated? No/not indicated 10/05/17 11:36 H. pylori IgG Antibody Negative (NEGATIVE) 10/05/17 08:40 Tissue Pathology To follow 10/07/17 12:44 - Plan (1) Intractable nausea and vomiting Status: Acute Qualifiers: Vomiting type: unspecified Qualified Code(s): R11.2 - Nausea with vomiting , unspecified Plan: phenergan 25mn iv q4h prn, continue to monitor (2) Epigastric pain Status: Acute Plan: morphine 4mg iv q6h prn, protonix 40mg iv bid, EGD on , gallbladder US on , continue to monitor (3) GERD (gastroesophageal reflux disease) Status: Acute Qualifiers: Esophagitis presence: with esophagitis Qualified Code(s): K21.0 - Gastro- esophageal reflux disease with esophagitis Plan: protonix 40mg iv bid, continue to monitor (4) Hypertension Status: Acute Qualifiers: Hypertension type: essential hypertension Qualified Code(s): I10 - Essential (primary) hypertension Plan: continue norvasc 10mg po daily, continue to monitor
[2017-10-08 05:12] LABS: BASOPHILS # (AUTO) 0.1 X10^3/uL (0.0-0.1); BASOPHILS % (AUTO) 0.7 % (0.2-1.0); EOSINOPHILS # (AUTO) 0.1 x10^3/uL (0.0-0.2); EOSINOPHILS % (AUTO) 1.4 % (0.9-2.9); HEMOGLOBIN 16.3 g/dL (13.5-18.0); LYMPHOCYTES # (AUTO) 1.4 X10^3/uL (1.3-2.9); LYMPHOCYTES % (AUTO) 17.7 % (21.0-51.0); MEAN CORPUSCULAR HEMOGLOBIN 30.1 pg (27.0-34.0); MEAN CORPUSCULAR HGB CONC 34.7 g/dL (33.0-35.0); MEAN CORPUSCULAR VOLUME 86.7 fL (80.0-100.0); MEAN PLATELET VOLUME 9.1 fL (7.4-11.0); MONOCYTES # (AUTO) 0.7 x10^3/uL (0.3-0.8); MONOCYTES % (AUTO) 8.6 % (0.0-13.0); NEUTROPHILS # (AUTO) 5.8 x10^3/uL (2.2-4.8); NEUTROPHILS % (AUTO) 71.6 % (42.0-75.0); PLATELET COUNT 171 X10^3/uL (150.0-450.0); RED BLOOD COUNT 5.42 X10^6/uL (4.7-6.0); RED CELL DISTRIBUTION WIDTH 12.6 % (11.6-16.5); WHITE BLOOD COUNT 8.1 X10^3/uL (3.6-10.0)
[2017-10-08 05:18] LABS: ALANINE AMINOTRANSFERASE 26 Units/L (12-78); ALKALINE PHOSPHATASE 47 Units/L (46-116); ASPARTATE AMINO TRANSFERASE 15 Units/L (15-37); BLOOD UREA NITROGEN 8 mg/dL (7-18); CALCIUM 8.3 mg/dL (8.5-10.1); CARBON DIOXIDE 25.5 mmol/L (21-32); CHLORIDE 104 mmol/L (98-107); COR CA(FOR HYPOALB) 9.1 mg/dL (8.5-10.1); CREATININE 1.06 mg/dL (0.70-1.30); SODIUM 137 mmol/L (136-145); eGFR BLACK RACES > 60 (>60); eGFR NON BLACK RACES > 60 (>60)
[2017-10-08 06:11] LABS: ANTI-NUCLEAR ANTIBODY TEST None Detected (None Detected); HEPATITIS B CORE IGM Negative (Negative); HEPATITIS B SURFACE ANTIGEN Negative (Negative)
[2017-10-08] MEDS: NS + KCL 20 MEQ/L 1,000 ML IV SCH (08:00)
[2017-10-08 09:49] VITALS: BP 139/70
[2017-10-11 06:26] LABS: COPPER LEVEL 82 ug/dL (70-140)
== END 2017-10-08 10:10 | disposition home or self-care (01) ==
LOC: ER 08:07 → MED/SURG 14:15
PROVIDERS: ADMIT Internal Medicine; ATTEND Internal Medicine
PROC: 0DB68ZX Excision of Stomach, Via Natural or Artificial Opening Endoscopic, Diagnostic (ICD-10-PCS; principal; 2017-10-06)
DX: R11.2 Nausea with vomiting, unspecified (principal); R10.13 Epigastric pain; R10.84 Generalized abdominal pain; I10 Essential (primary) hypertension; K92.0 Hematemesis; K29.60 Other gastritis without bleeding; K20.9 Esophagitis, unspecified; K21.9 Gastro-esophageal reflux disease without esophagitis; K80.00 Calculus of gallbladder with acute cholecystitis without obstruction
CPT/HCPCS: 36415; 71045; 74177; 76705; 80053; 80074; 81001; 82103; 82248; 82390; 82525; 82728; 83540; 83550; 84466; 85025; 86140; 86256; 86308; 86677; 87040; 94760; 96365; 96367; 96374; 96375; 99283; 99284; A4216; A4222; C9113; A4217; G0378; J1940; J2270; J2405; J2550; J3480; J3490

== ENCOUNTER 2017-10-22 07:17 | Day surgery (SDC) | payer BC ==
[2017-10-22] MEDS ORDERED: LR 1000 ML IV 1,000 ML IV ONE (07:18)
[2017-10-22] MEDS: ANCEF 1 GM IV PREMIX* 2 GM/100 ML BAG IV ONE ×2 (07:49→08:30)
[2017-10-22 08:03] LABS: BASOPHILS % (AUTO) 0.7 % (0.2-1.0); EOSINOPHILS # (AUTO) 0.2 x10^3/uL (0.0-0.2); EOSINOPHILS % (AUTO) 2.8 % (0.9-2.9); HEMATOCRIT 45.3 % (42.0-54.0); LYMPHOCYTES # (AUTO) 1.7 X10^3/uL (1.3-2.9); LYMPHOCYTES % (AUTO) 25.7 % (21.0-51.0); MEAN CORPUSCULAR HEMOGLOBIN 29.9 pg (27.0-34.0); MEAN CORPUSCULAR HGB CONC 35.3 g/dL (33.0-35.0); MEAN CORPUSCULAR VOLUME 84.8 fL (80.0-100.0); MEAN PLATELET VOLUME 8.4 fL (7.4-11.0); MONOCYTES # (AUTO) 0.6 x10^3/uL (0.3-0.8); MONOCYTES % (AUTO) 9.1 % (0.0-13.0); NEUTROPHILS % (AUTO) 61.7 % (42.0-75.0); PLATELET COUNT 294 X10^3/uL (150.0-450.0); RED BLOOD COUNT 5.34 X10^6/uL (4.7-6.0); RED CELL DISTRIBUTION WIDTH 12.8 % (11.6-16.5); WHITE BLOOD COUNT 6.5 X10^3/uL (3.6-10.0)
[2017-10-22 08:13] LABS: ALANINE AMINOTRANSFERASE 21 Units/L (12-78); ALBUMIN 3.4 g/dL (3.4-5.0); ALKALINE PHOSPHATASE 52 Units/L (46-116); ASPARTATE AMINO TRANSFERASE 19 Units/L (15-37); BLOOD UREA NITROGEN 16 mg/dL (7-18); CALCIUM 8.4 mg/dL (8.5-10.1); CARBON DIOXIDE 27.3 mmol/L (21-32); CHLORIDE 104 mmol/L (98-107); SODIUM 139 mmol/L (136-145); TOTAL PROTEIN 7.2 g/dL (6.4-8.2); eGFR BLACK RACES > 60 (>60); eGFR NON BLACK RACES > 60 (>60)
[2017-10-22] MEDS ORDERED: XYLOCAINE 1% and EPINEPHRINE 1:100,000 ONE (08:23)
[2017-10-22] MEDS ORDERED: MARCAINE 0.25% INJ ONE (08:23)
[2017-10-22] MEDS ORDERED: FENTANYL INJ 250 mcg ONE (08:36)
[2017-10-22] MEDS ORDERED: NS IRRIGATION 3000 ML 3,000 ML IR ONE (09:48)
[2017-10-22] MEDS ORDERED: PERCOCET TAB 5/325 MG PO PRN (10:32)
[2017-10-22] MEDS ORDERED: REGLAN INJ 10 MG VIAL IVP PRN (10:35)
[2017-10-22] MEDS ORDERED: PHENERGAN INJ 25 MG IVP PRN (10:35)
[2017-10-22] MEDS ORDERED: DILAUDID INJ IVP PRN (10:35)
[2017-10-22] MEDS ORDERED: ZOFRAN INJ 4 MG VIAL IVP PRN (10:35)
[2017-10-22] MEDS ORDERED: BENADRYL INJ 50 MG VIAL IVP PRN (10:35)
--- NOTE | 2017-10-22 10:42 | OR.GENERIC ---
Post-Op Note Generic - Post-Op Note Operative Report: Operative Report Date of Operation: October 22, 2017 Pre-Operative Diagnosis: 1. Cholelithiasis. 2. Chronic cholecystitis. Post-Operative Diagnosis: 1. Cholelithiasis. 2. Chronic cholecystitis. Procedure: Laparoscopic cholecystectomy. Surgeon: Fransisco Ohara MD. Fur Dry Cleaner: Janiya Gaytan CRNA. Specimen: Gallbladder. Estimated blood loss: Minimal. Complications: None. Summary: The patient is a 37 year old male who presented with cholelithiasis and chronic cholecystitis. The patient was offered cholecystectomy. The risk and benefits of the procedure including difficulty with anesthesia, bleeding, infection, conversion to open procedure, bile leak, hernia formation, DVT, as well as PE were discussed with the patient. The patient understood these risks and requested the procedure. On October 22, 2017, the patient was brought to the operative theatre. A time out was performed verifying the patient and procedure. The patient received Ancef for pre-operative antibiosis. After satisfactory induction of general endotracheal anesthesia, the abdomen was prepped with Chloraprep and draped in the usual sterile fashion. The skin and subcutaneous tissue inferior to the umbilicus was anesthetized using local anesthetic. The skin was incised sharply. A 12 mm trocar was placed though the incision and into the peritoneal cavity using the Optiview technique. Carbon dioxide was infiltrated through this trocar to obtain a pneumoperitoneum of 15 mm Hg. A camera was placed through this trocar and swept in all directions. No injury was seen from entering the peritoneal cavity. A site was selected in the subxiphoid location for our 2nd trocar. The skin and fascia was anesthetized using local anesthetic. The skin was incised sharply. A 5 mm trocar was placed into the peritoneal cavity under direct visualization. In a similar manner, two additional 5 mm trocars were placed. The first was placed in the mid- clavicular line approximately 2 fingerbreadths inferior to the left costal margin and a second in the anterior axillary line approximately 2 fingerbreadths inferior to the left costal margin. The patient was placed in reverse Trendelenburg and rotated to the patients left. The gallbladder was grasped at the fundus and elevated cephalad and slightly lateral. Omental attachments were taken down using blunt dissection and electrocautery. The peritoneum on the medial and lateral aspects of the infundibulum of the gallbladder was scored using hook electrocautery. Using blunt dissection, the cystic artery and duct were isolated. The critical view of safety was obtained. Both of these structures were divided between endoclips. The gallbladder was dissected free using hook electrocautery. The gallbladder was placed in an endobag and removed through the umbilical trocar site without difficulty. The trocar and camera were placed back inside the abdomen. Our clips were noted in good position. Bleeding of the gallbladder fossa was controlled using electrocautery. At this point, the 5 mm trocars were removed under direct visualization. No bleeding was seen. The umbilical trocar was then removed and pneumoperitoneum released. The fascia at the umbilicus was closed using a 0-Vicryl placed in a [id number] configuration. The skin edges at all incisions were re-approximated using inverted, interrupted 4-0 Monocryl sutures. Mastisol and Steri-strips were placed. Sterile dressings were placed. The patient was awakened and taken to the recovery room in stable condition. There were no complications. All counts were correct.
[2017-10-22] MEDS ORDERED: ZOFRAN INJ 4 MG VIAL ONE (10:48)
[2017-10-22] MEDS ORDERED: TORADOL 30 MG VIAL ONE (10:49)
[2017-10-22] MEDS ORDERED: PERCOCET TAB 5/325 MG ONE (11:54)
[2017-10-22] MEDS ORDERED: ZOFRAN TAB 4 MG ONE (11:56)
[2017-10-22 12:29] VITALS: BP 117/81
[2017-10-22] MEDS ORDERED: DIPRIVAN VIAL ONE (14:37)
[2017-10-22] MEDS ORDERED: XYLOCAINE 2 % (PLAIN) ONE (14:37)
[2017-10-22] MEDS ORDERED: ROBINUL ONE (14:37)
[2017-10-22] MEDS ORDERED: NORCURON INJ 10 MG VIAL ONE (14:37)
[2017-10-22] MEDS ORDERED: VERSED ONE (14:37)
[2017-10-22] MEDS ORDERED: SUPRANE IN ONE (14:37)
[2017-10-22] MEDS ORDERED: QUELICIN (OR ANECTINE) ONE (14:37)
[2017-10-22] MEDS ORDERED: NEOSTIGMINE INJ ONE (14:37)
== END 2017-10-22 12:31 | disposition home or self-care (01) ==
LOC: SURG1 07:17
PROVIDERS: ATTEND Student in an Organized Health Care Education/Training Program
PROC: 0FT44ZZ Resection of Gallbladder, Percutaneous Endoscopic Approach (ICD-10-PCS; principal; 2017-10-22 08:30)
DX: K81.1 Chronic cholecystitis (principal)
CPT/HCPCS: 36415; 80053; 85025; A4222; S0020; S0181; J0330; J0690; J1885; J2001; J2250; J2405; J2710; J3010; J3490; J7120